=== PATIENT | male | born 1950 | race Caucasian/White ===

== ENCOUNTER 2020-10-23 12:54 | Observation (INO) ==
[2020-10-23] MEDS ORDERED: Ondansetron 4 MG/2 ML VIAL IVP PRN ×4 (15:50→21:48)
[2020-10-23] MEDS ORDERED: *HR* Metoprolol 5 MG/5 ML VIAL IVP PRN ×4 (15:50→21:48)
[2020-10-23] MEDS ORDERED: *HR* OxyCODONE/APAP 5/325 TABLET PO PRN ×2 (15:50→21:48)
[2020-10-23] MEDS ORDERED: Piperacillin/Tazobactam 3.375 GM in 0.9 % Sodium Chloride Mini Bag 100 ML IVPB SCH (16:00)
[2020-10-23] MEDS ORDERED: 0.9 % Sodium Chloride 1,000 ML IVC SCH ×2 (16:00→21:48)
[2020-10-23 16:30] LABS: Basophils % 0.2 %; Hematocrit 38.2 % (37.5-50.1); Immature Granulocytes % 0.7 % (0-4); Lymphocytes # 0.5 K/mcL (0.6-4.6); Lymphocytes % 2.9 %; Mean Platelet Volume 10.2 fL (9.4-12.4); Monocytes # 1.6 K/mcL (0.0-1.3); Monocytes % 9.4 %; Neutrophils # 14.7 K/mcL (1.6-8.9); Platelet Count 160 K/mcL (140-400); Red Cell Distribution Width 14.2 % (11.5-14.5); Segmented Neutrophils % 86.8 %
[2020-10-23 16:48] LABS: Alanine Aminotransferase 8 Units/L (7-52); Albumin 3.2 g/dL (3.5-5.7); Albumin/Globulin Ratio 1.1 (1.1-2.2); Alkaline Phosphatase 31 Units/L (34-104); Amylase 17 Units/L (29-103); Aspartate Amino Transferase 13 Units/L (13-39); BUN/Creatinine Ratio 19 (6-26); Bilirubin,Direct 0.3 mg/dL (0.0-0.2); Bilirubin,Indirect 0.8 mg/dL (0.0-1.0); Bilirubin,Total 1.1 mg/dL (0.3-1.0); Blood Urea Nitrogen 13 mg/dL (8-23); Carbon Dioxide 28 mEq/L (23-29); Chloride 92 mEq/L (98-107); Glucose 122 mg/dL (70-105); Lipase 19 Units/L (11-82); Osmolality,Calculated 263 (280-300); Potassium 3.7 mEq/L (3.5-5.1); Sodium 126 mEq/L (136-145); Total Protein 6.2 g/dL (6.4-8.9); eGFR For African Americans > 60 (> 60); eGFR For Non-African Americans > 60 (> 60)
[2020-10-23] MEDS ORDERED: Albuterol 2.5 MG/3 ML NEBULIZER IH PRN ×2 (19:31→21:48)
[2020-10-23] MEDS ORDERED: Nitroglycerin 0.4 MG TAB.SUBL SL PRN ×2 (19:31→21:48)
[2020-10-23] MEDS ORDERED: Naloxone 0.4 MG/ML INJ IVP PRN ×2 (19:31→21:48)
[2020-10-23] MEDS ORDERED: *HR* FentaNYL (PF) 100 MCG/2 ML VIAL IVP PRN ×2 (19:31→21:48)
[2020-10-23] MEDS ORDERED: *HR* HYDROmorphone (PF) 1 MG/ML SYRINGE IVP PRN ×2 (19:31→21:48)
[2020-10-23] MEDS ORDERED: Isovue-300 50ML VIAL ONE (19:35)
[2020-10-23] MEDS ORDERED: CefOXitin 1,000 MG VIAL ONE (19:35)
[2020-10-23] MEDS ORDERED: *HR* FentaNYL (PF) 100 MCG/2 ML VIAL ONE (19:51)
[2020-10-23] MEDS ORDERED: *HR* HYDROMORPHONE 2 MG/ML VIAL ONE (19:52)
[2020-10-23] MEDS ORDERED: *HR* Rocuronium Bromide 50 MG/5 ML VIAL ONE (19:53)
[2020-10-23] MEDS ORDERED: Lidocaine -MPF 2% 2 ML VIAL ONE (19:53)
[2020-10-23] MEDS ORDERED: Ondansetron 4 MG/2 ML VIAL ONE (19:53)
[2020-10-23] MEDS ORDERED: *HR* Succinylcholine 200 MG/10 ML VIAL IVP ONE (19:53)
[2020-10-23] MEDS ORDERED: *HR* Metoprolol 5 MG/5 ML VIAL IVP ONE (20:12)
[2020-10-23] MEDS ORDERED: *HR* Labetalol 20 MG/4 ML SYRINGE IVP ONE (20:13)
[2020-10-23] MEDS ORDERED: Neostigmine Methylsulfate 3 MG/3 ML SYRINGE ONE (20:42)
[2020-10-23] MEDS: Piperacillin/Tazobactam 3.375 GM in 0.9 % Sodium Chloride Mini Bag 100 ML IVPB SCH (23:28)
[2020-10-24] MEDS ORDERED: Pantoprazole 40 MG VIAL IVP SCH ×2 (06:30→09:00)
[2020-10-24] MEDS ORDERED: Aspirin 81 MG TAB.CHEW PO SCH (09:00)
[2020-10-24] MEDS ORDERED: allopurinoL 300 MG TABLET PO SCH (09:00)
[2020-10-24] MEDS ORDERED: atenoloL 50 MG TABLET PO SCH (09:00)
[2020-10-24] MEDS: Piperacillin/Tazobactam 3.375 GM in 0.9 % Sodium Chloride Mini Bag 100 ML IVPB SCH (09:42)
[2020-10-24 11:08] VITALS: BP 111/66; PULSE 67; TEMP 98.5; O2SAT 92
== END 2020-10-24 14:21 | disposition home or self-care (01) ==
LOC: 3ANU
PROVIDERS: ADMIT Surgery; ATTEND Surgery